=== PATIENT | male | born 1970 | race Hispanic/Latino ===

== ENCOUNTER 2025-07-13 14:23 | Outpatient (CLI) | payer OTHER | END 2025-07-13 14:24 | disposition home or self-care (01) | LOC: CSHRAD 14:23 | PROVIDERS: ATTEND Nurse Practitioner Family | DX: Z01.818 Encounter for other preprocedural examination (principal); E11.621 Type 2 diabetes mellitus with foot ulcer | CPT/HCPCS: 71046 ==

== ENCOUNTER 2025-07-20 12:53 | Outpatient (CLI) | payer OTHER | END 2025-07-20 12:54 | disposition home or self-care (01) | LOC: CSHWCC 12:53 | PROVIDERS: ATTEND Nurse Practitioner Family | DX: T87 Complications peculiar to reattachment and amputation (principal); E11.621 Type 2 diabetes mellitus with foot ulcer; T81.31XD Disruption of external operation (surgical) wound, not elsewhere classified, subsequent encounter; S97.111D Crushing injury of right great toe, subsequent encounter | CPT/HCPCS: 99213; G0463 ==

== ENCOUNTER 2025-08-02 12:30 | Outpatient (CLI) | payer OTHER | END 2025-08-02 12:31 | disposition home or self-care (01) | LOC: CSHWCC 12:30 | PROVIDERS: ATTEND Nurse Practitioner Family | DX: T81.31XD Disruption of external operation (surgical) wound, not elsewhere classified, subsequent encounter (principal); S97.111D Crushing injury of right great toe, subsequent encounter; T87 Complications peculiar to reattachment and amputation; E11.621 Type 2 diabetes mellitus with foot ulcer; L97.409 Non-pressure chronic ulcer of unspecified heel and midfoot with unspecified severity | CPT/HCPCS: 36416; G0277 ==

== ENCOUNTER 2025-08-03 12:43 | Outpatient (CLI) | payer OTHER | END 2025-08-03 12:44 | disposition home or self-care (01) | LOC: CSHWCC 12:43 | PROVIDERS: ATTEND Nurse Practitioner Family | DX: T81.31XD Disruption of external operation (surgical) wound, not elsewhere classified, subsequent encounter (principal); T87 Complications peculiar to reattachment and amputation; S97.111D Crushing injury of right great toe, subsequent encounter; E11.621 Type 2 diabetes mellitus with foot ulcer; L97.509 Non-pressure chronic ulcer of other part of unspecified foot with unspecified severity | CPT/HCPCS: 36416; G0277 ==

== ENCOUNTER 2025-08-04 12:47 | Outpatient (CLI) | payer OTHER | END 2025-08-04 12:48 | disposition home or self-care (01) | LOC: CSHWCC 12:47 | PROVIDERS: ATTEND Nurse Practitioner Family | DX: T81.31XD Disruption of external operation (surgical) wound, not elsewhere classified, subsequent encounter (principal); E11.621 Type 2 diabetes mellitus with foot ulcer; L97.509 Non-pressure chronic ulcer of other part of unspecified foot with unspecified severity; S97.111D Crushing injury of right great toe, subsequent encounter; T87 Complications peculiar to reattachment and amputation | CPT/HCPCS: 36416; 99213; G0277; G0463 ==

== ENCOUNTER 2025-08-15 12:33 | Outpatient (CLI) | payer OTHER | END 2025-08-15 12:34 | disposition home or self-care (01) | LOC: CSHWCC 12:33 | PROVIDERS: ATTEND Nurse Practitioner Family | DX: T81.31XD Disruption of external operation (surgical) wound, not elsewhere classified, subsequent encounter (principal); E11.621 Type 2 diabetes mellitus with foot ulcer; L97.509 Non-pressure chronic ulcer of other part of unspecified foot with unspecified severity; S97.111D Crushing injury of right great toe, subsequent encounter; T87 Complications peculiar to reattachment and amputation | CPT/HCPCS: 36416; G0277 ==

== ENCOUNTER 2025-08-16 08:22 | Outpatient (CLI) | payer OTHER | END 2025-08-16 08:23 | disposition home or self-care (01) | LOC: CSHWCC 08:22 | PROVIDERS: ATTEND Nurse Practitioner Family | DX: T81.31XD Disruption of external operation (surgical) wound, not elsewhere classified, subsequent encounter (principal); E11.621 Type 2 diabetes mellitus with foot ulcer; L97.509 Non-pressure chronic ulcer of other part of unspecified foot with unspecified severity; S97.111D Crushing injury of right great toe, subsequent encounter; T87 Complications peculiar to reattachment and amputation | CPT/HCPCS: 36416; G0277 ==

== ENCOUNTER 2025-08-22 13:42 | Outpatient (CLI) | payer OTHER | END 2025-08-22 13:43 | disposition home or self-care (01) | LOC: CSHWCC 13:42 | PROVIDERS: ATTEND Nurse Practitioner Family | DX: T81.31XD Disruption of external operation (surgical) wound, not elsewhere classified, subsequent encounter (principal); E11.621 Type 2 diabetes mellitus with foot ulcer; L97.509 Non-pressure chronic ulcer of other part of unspecified foot with unspecified severity; S97.11 Crushing injury of great toe; T87 Complications peculiar to reattachment and amputation | CPT/HCPCS: 36416; G0277 ==

== ENCOUNTER 2025-08-25 08:04 | Outpatient (CLI) | payer OTHER | END 2025-08-25 08:05 | disposition home or self-care (01) | LOC: CSHWCC 08:04 | PROVIDERS: ATTEND Nurse Practitioner Family | DX: T81.31XD Disruption of external operation (surgical) wound, not elsewhere classified, subsequent encounter (principal); S97.11 Crushing injury of great toe; T87 Complications peculiar to reattachment and amputation; E11.621 Type 2 diabetes mellitus with foot ulcer; L97.509 Non-pressure chronic ulcer of other part of unspecified foot with unspecified severity | CPT/HCPCS: 36416; G0277 ==

== ENCOUNTER 2025-08-26 08:12 | Outpatient (CLI) | payer OTHER | END 2025-08-26 08:13 | disposition home or self-care (01) | LOC: CSHWCC 08:12 | PROVIDERS: ATTEND Family Medicine | DX: T81.31XD Disruption of external operation (surgical) wound, not elsewhere classified, subsequent encounter (principal); E11.621 Type 2 diabetes mellitus with foot ulcer; L97.509 Non-pressure chronic ulcer of other part of unspecified foot with unspecified severity; S97.11 Crushing injury of great toe; T87 Complications peculiar to reattachment and amputation | CPT/HCPCS: 36416; G0277 ==

== ENCOUNTER 2025-08-29 12:34 | Outpatient (CLI) | payer OTHER | END 2025-08-29 12:35 | disposition home or self-care (01) | LOC: CSHWCC 12:34 | PROVIDERS: ATTEND Nurse Practitioner Family | DX: E11.621 Type 2 diabetes mellitus with foot ulcer (principal); L97.509 Non-pressure chronic ulcer of other part of unspecified foot with unspecified severity; T81.31XD Disruption of external operation (surgical) wound, not elsewhere classified, subsequent encounter; T87 Complications peculiar to reattachment and amputation; S97.111D Crushing injury of right great toe, subsequent encounter | CPT/HCPCS: 11042; 36416; 99213; G0277; G0463 ==

== ENCOUNTER 2025-08-30 13:05 | Outpatient (CLI) | payer OTHER | END 2025-08-30 13:06 | disposition home or self-care (01) | LOC: CSHWCC 13:05 | PROVIDERS: ATTEND Nurse Practitioner Family | DX: T81.31XD Disruption of external operation (surgical) wound, not elsewhere classified, subsequent encounter (principal); E11.621 Type 2 diabetes mellitus with foot ulcer; L97.512 Non-pressure chronic ulcer of other part of right foot with fat layer exposed; T87 Complications peculiar to reattachment and amputation; S97.11 Crushing injury of great toe | CPT/HCPCS: 36416; G0277 ==

== ENCOUNTER 2025-09-01 12:31 | Outpatient (CLI) | payer OTHER | END 2025-09-01 12:32 | disposition home or self-care (01) | LOC: CSHWCC 12:31 | PROVIDERS: ATTEND Nurse Practitioner Family | DX: E11.621 Type 2 diabetes mellitus with foot ulcer (principal); L97.512 Non-pressure chronic ulcer of other part of right foot with fat layer exposed; S97.111D Crushing injury of right great toe, subsequent encounter; T87 Complications peculiar to reattachment and amputation; T81.31XD Disruption of external operation (surgical) wound, not elsewhere classified, subsequent encounter | CPT/HCPCS: 36416; G0277 ==

== ENCOUNTER 2025-09-06 14:58 | Outpatient (CLI) | payer OTHER | END 2025-09-06 14:59 | disposition home or self-care (01) | LOC: CSHWCC 14:58 | PROVIDERS: ATTEND Nurse Practitioner Family | DX: T81.31XD Disruption of external operation (surgical) wound, not elsewhere classified, subsequent encounter (principal); E11.621 Type 2 diabetes mellitus with foot ulcer; L97.512 Non-pressure chronic ulcer of other part of right foot with fat layer exposed; S97.11 Crushing injury of great toe; T87 Complications peculiar to reattachment and amputation | CPT/HCPCS: 36416 ==

== ENCOUNTER 2025-09-07 13:09 | Outpatient (CLI) | payer OTHER | END 2025-09-07 13:10 | disposition home or self-care (01) | LOC: CSHWCC 13:09 | PROVIDERS: ATTEND Nurse Practitioner Family | DX: E11.621 Type 2 diabetes mellitus with foot ulcer (principal); T81.31XD Disruption of external operation (surgical) wound, not elsewhere classified, subsequent encounter; L97.512 Non-pressure chronic ulcer of other part of right foot with fat layer exposed; S97.11 Crushing injury of great toe; T87 Complications peculiar to reattachment and amputation | CPT/HCPCS: 36416 ==

== ENCOUNTER 2025-09-08 12:34 | Outpatient (CLI) | payer OTHER | END 2025-09-08 12:35 | disposition home or self-care (01) | LOC: CSHWCC 12:34 | PROVIDERS: ATTEND Nurse Practitioner Family | DX: T81.31XD Disruption of external operation (surgical) wound, not elsewhere classified, subsequent encounter (principal); E11.621 Type 2 diabetes mellitus with foot ulcer; L97.512 Non-pressure chronic ulcer of other part of right foot with fat layer exposed; T87 Complications peculiar to reattachment and amputation; S97.11 Crushing injury of great toe | CPT/HCPCS: 36416 ==

== ENCOUNTER 2025-09-09 13:12 | Outpatient (CLI) | payer OTHER | END 2025-09-09 13:13 | disposition home or self-care (01) | LOC: CSHWCC 13:12 | PROVIDERS: ATTEND Nurse Practitioner Family | DX: E11.621 Type 2 diabetes mellitus with foot ulcer (principal); L97.512 Non-pressure chronic ulcer of other part of right foot with fat layer exposed; T81.31XD Disruption of external operation (surgical) wound, not elsewhere classified, subsequent encounter; S97.111D Crushing injury of right great toe, subsequent encounter; T87 Complications peculiar to reattachment and amputation | CPT/HCPCS: 36416; G0277 ==

== ENCOUNTER 2025-09-19 12:37 | Outpatient (CLI) | payer SELFPAY | END 2025-09-19 12:38 | disposition home or self-care (01) | LOC: CSHWCC 12:37 | PROVIDERS: ATTEND Nurse Practitioner Family | DX: T81.31XD Disruption of external operation (surgical) wound, not elsewhere classified, subsequent encounter (principal); E11.621 Type 2 diabetes mellitus with foot ulcer; L97.512 Non-pressure chronic ulcer of other part of right foot with fat layer exposed; S97.11 Crushing injury of great toe; T87 Complications peculiar to reattachment and amputation | CPT/HCPCS: 36416; G0277 ==

== ENCOUNTER → 2025-09-21 | Outpatient (CLI) | payer OTHER | LOC: CSHWCC 13:10 | PROVIDERS: ATTEND Nurse Practitioner Family | DX: E11.621 Type 2 diabetes mellitus with foot ulcer (principal); L97.512 Non-pressure chronic ulcer of other part of right foot with fat layer exposed; T81.31XD Disruption of external operation (surgical) wound, not elsewhere classified, subsequent encounter; S97.11 Crushing injury of great toe; T87 Complications peculiar to reattachment and amputation | CPT/HCPCS: 36416; G0277 ==